=== PATIENT | female | born 1945 | race Caucasian/White ===

== ENCOUNTER 2020-10-09 08:37 | Observation (INO) ==
--- NOTE | 2020-10-02 11:44 | History & Physical Report ---
Date of Service October 02, 2020 Assessment & Plan (1) Lumbar post-laminectomy syndrome: (2) Presence of intrathecal pump: Intrathecal pump has not been providing adequate pain relief despite multiple dosage increases. No fluid could be aspirated from the catheter access port. Catheter is occluded which may be why the patient is not receiving adequate pain relief. She will be scheduled for a catheter evaluation and potential revision. As there are two intrathecal pump anchor sites no longer attached and the pump is in the pocket at a 90 degree angle, we will also plan to revise/replace the intrathecal pump. Risks and benefits were reviewed with the patient. Procedure was explained and she would like to proceed. History of Present Illness Primary Care Provider: Steffen Ramirez Mrs. Gonzales is a 75 year old female with chronic intractable axial low back pain secondary to lumbar post-laminectomy syndrome requiring the implantation of an intrathecal pump and catheter delivery system. She has had poor pain control despite continued dosage increases. Her pain is worsened with standing and walking. Symptoms improve with sitting and laying supine. Pain is ranging from 4-10/10. She is reporting moderate limitations into performing her daily activities. Intrathecal pump contains hydromorphone, bupivacaine, and clonidine. Allergies Allergy/AdvReac Type Severity Reaction Status Date / Time cephalexin Allergy Unknown Unknown Verified 10/02/20 11:37 bee sting Allergy Intermediate MOUTH Uncoded 10/02/20 11:37 SWELLS Home Medications Home Medications Medication Instructions Recorded Confirmed Type amlodipine 10 mg tablet 10 mg PO QAM 05/23/20 10/02/20 History aspirin 81 mg tablet,delayed 81 mg PO QAM 05/23/20 10/02/20 History release atorvastatin 20 mg tablet 20 mg PO QAM 05/23/20 10/02/20 History clonazepam 0.5 mg tablet 0.5 mg PO TID 05/23/20 10/02/20 History furosemide 40 mg tablet 40 mg PO BID 05/23/20 10/02/20 History hydromorphone intrathecal pump 0 dose CONTINUOUS INTRATHECAL 05/23/20 10/02/20 History INFUSION DAILY iron,carbonyl 65 mg-vitamin C 125 1 tab PO BID 05/23/20 10/02/20 History mg tablet,delayed release metoprolol tartrate 25 mg tablet 12.5 mg PO BID tab 05/23/20 10/02/20 History potassium chloride 20 mEq 20 meq PO BID 05/23/20 10/02/20 History tablet,extended release(part/cryst) pregabalin 75 mg capsule 75 mg PO BID 05/23/20 10/02/20 History Lactobacillus acidophilus 1,000 mmu cells PO BID 08/17/20 10/02/20 History [Probiotic Acidophilus] apixaban [Eliquis] 5 mg PO BID 10/02/20 10/02/20 History Past Med/Surg History Medical History Afib TAKING ELIQUIS Anxiety Back pain Failure of spinal cord stimulator 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 PLACED FOR SSS. 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 Speech and cognition is intact. Mood and affect is appropriate. In no acute distress. HEAD: Normocephalic; atraumatic. EYES: No conjunctival injection. EOM intact. NECK: Full ROM; trachea is midline; no TTP; no cervical lymphadenopathy. CARDIO: Regular rate and rhythm. No murmurs, rubs, or gallops. PULM: Clear to auscultation. No wheezes, rales, or rhonchi. CHEST: Regular chest respiration and excursion. ABDOMEN: Intrathecal pump is located in the left lower abdomen and is at 90 degrees in the pocket. 2 anchor sites are no longer attached. EXTREMITIES: 4/5 strength of the lower extremities. 1+ lower extremity edema. Diminished distal sensation. BACK: Well healed surgical incisions from the mid thoracic to distal lumbar region. No focal midline, facet joint, or SI joint tenderness. No myofascial spasm or trigger points noted. NEURO: CN II-XII grossly intact with no focal deficits noted. Ambulates slowly with a single point cane. SKIN: No lesions, erythema, or rashes noted.
--- NOTE | 2020-10-02 13:31 | Anesthesiology Consultation ---
Date of Service October 02, 2020 Assessment & Plan (1) Encounter for pre-operative examination: Chart Review Chart Review: Acceptable Risk for Surgery (pending preop Covid testing ) and Patient NOT seen in Pre Admission Testing Pt initially scheduled for procedure 08/29/20- rescheduled secondary to UTI. Per nursing assessment 10/02/2020, patient resides in [facility]. No known Covid positive contacts or Covid related symptoms. Preop Covid testing scheduled 10/03/20. History Surgery Operation Date: 10/09/20 10:10 Proposed Procedures p Revision/Replacement of Intrathecal Morphine Pain Pump and Possible Revision/Replament of Intrathecal Catheter - Erin Rosario, Height/Weight Height: 5 ft 4 in Weight: 70.307 kg Allergies Allergy/AdvReac Type Severity Reaction Status Date / Time cephalexin Allergy Unknown Unknown Verified 10/02/20 11:37 bee sting Allergy Intermediate MOUTH Uncoded 10/02/20 11:37 SWELLS Medications Home Medications Medication Instructions Recorded Confirmed Last Taken amlodipine 10 mg tablet 10 mg PO QAM 05/23/20 10/02/20 Unknown aspirin 81 mg tablet,delayed 81 mg PO QAM 05/23/20 10/02/20 Unknown release atorvastatin 20 mg tablet 20 mg PO QAM 05/23/20 10/02/20 Unknown clonazepam 0.5 mg tablet 0.5 mg PO TID 05/23/20 10/02/20 Unknown furosemide 40 mg tablet 40 mg PO BID 05/23/20 10/02/20 Unknown hydromorphone intrathecal pump 0 dose CONTINUOUS INTRATHECAL 05/23/20 10/02/20 Unknown INFUSION DAILY iron,carbonyl 65 mg-vitamin C 125 1 tab PO BID 05/23/20 10/02/20 Unknown mg tablet,delayed release metoprolol tartrate 25 mg tablet 12.5 mg PO BID tab 05/23/20 10/02/20 Unknown potassium chloride 20 mEq 20 meq PO BID 05/23/20 10/02/20 Unknown tablet,extended release(part/cryst) pregabalin 75 mg capsule 75 mg PO BID 05/23/20 10/02/20 Unknown Lactobacillus acidophilus 1,000 mmu cells PO BID 08/17/20 10/02/20 Unknown [Probiotic Acidophilus] apixaban [Eliquis] 5 mg PO BID 10/02/20 10/02/20 Unknown Past Medical History Medical History Afib TAKING ELIQUIS Anxiety Failure of spinal cord stimulator 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 PLACED FOR SSS. Presence of intrathecal pump Past Family History Family History Mother Heart disease Father No problems noted. 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 Nonspecific T wave abnormality. Other Testing Pacemaker Interrogation 07/19/20 Model: [employer] Implantation date: 12/25/16 Indication: SSS Battery/Longevity: 2.99 V/9.5yrs Mode: DDDR Pacin% AP, 3.2% SEAMER Ventricular triggered episodes: None Atrial triggered episodes: 18 A. fib, longest duration 2 days, 17 hours 3 minutes peak ventricular rate 152 bpm. Anticoagulation: ASA Comments appropriate device function. Plan: Return to clinic in 6 months.
[~2020-10-09 08:37] MED LIST: BUPIVACAINE 0.25% 30 ML VIAL ONE; LR 15ML/HR IV SCH
--- NOTE | 2020-10-09 09:31 | History & Physical Bridge Note ---
Date of Service October 09, 2020 History & Physical Bridge Note I have examined the patient, reviewed the History & Physical and in the interval since the performance of the History & Physical I have noted the following changes of clinical significance: no changes noted Potential risks including infection potentially leading to need for explantation of intrathecal pump, headache, bleeding, nerve injury, reaction to any one of the medications used for the procedure, persistent pain at the injection site and persistent symptoms discussed with the patient. Nature of the procedure also discussed with the patient. Alternatives to the specific procedure was also discussed with the patient. Patient's questions were answered. Patient gives informed consent to proceed.
[2020-10-09] MEDS ORDERED: ATROPINE SULFATE 0.1 MG/ML 10ML SYR IV PRN (09:58)
[2020-10-09] MEDS ORDERED: ONDANSETRON INJ 2 MG/ML 2 ML VIAL IV PRN ×2 (09:58→13:26)
[2020-10-09] MEDS ORDERED: ePHEDrine sulfate 50 MG/ML AMP IV PRN (09:58)
[2020-10-09] MEDS ORDERED: HYDROmorphone INJ 2 MG/ML SYR/VIAL IV PRN (09:58)
[2020-10-09] MEDS ORDERED: fentaNYL citrate 100 MCG/2 ML VIAL ONE (10:06)
[2020-10-09] MEDS ORDERED: PROPOFOL IV EMULSION 10 MG/ML 20 ML VIAL IV ONE (10:06)
[2020-10-09] MEDS ORDERED: MIDAZOLAM HCL 1 MG/ML 2ML VIAL ONE (10:06)
[2020-10-09] MEDS ORDERED: LIDOCAINE HCL 2% 2 ML VIAL/AMP(20MG/ML) INFIL ONE (10:06)
[2020-10-09] MEDS ORDERED: IOPAMIDOL INJ 61% 15 ML VIAL ONE (10:26)
[2020-10-09] MEDS ORDERED: LIDOCAINE/EPINE 2% 1:100,000 20ML ONE (10:27)
[2020-10-09] MEDS: CLINDAMYCIN 900 MG in DEXTROSE 5% 50 ML IV SCH (10:37)
[2020-10-09] MEDS ORDERED: BACITRACIN INJ 50,000 UNIT VIAL ONE (11:30)
[2020-10-09] MEDS ORDERED: ONDANSETRON INJ 2 MG/ML 2 ML VIAL ONE (12:29)
--- NOTE | 2020-10-09 13:22 | Operative Report ---
Post Operative Report Pre & Post Diagnosis Operation Date: 10/09/20 09:20 Pre-Op Diagnosis: Malfunctioning Intrathecal Catheter and Malposition Post-Op Diagnosis: Malfunctioning Intrathecal Catheter and Malposition I identified the patient and participated in the time-out.: Yes Procedure Operation Date: 10/09/20 09:20 Actual Procedures p Replacement of Intrathecal Hydromorphone Pain Pump, catheter acess study and analysis and reprogramming, irrigation and debridement hematoma pump site - Erin Rosario DO Surgeon Erin Rosario, Rn Cardiac none Estimated Blood Loss 20 Findings Consistent with Post-Op Diagnosis Fluids Per anesthetic record Specimens Gram stain and tissue sent from deep pocket to pathology Drains None Anesthesia Type General Regional Complications none Disposition Accompanied Patient To Recovery: No Disposition: Recovery Room Indications Intrathecal pump malfunction/malposition Description of Procedure PROCEDURE PERFORMED: Intrathecal pump replacement, catheter access port study, pump interrogation, reprogramming, and analysis. Incision and drainage hematoma from pump pocket site PREOPERATIVE DIAGNOSIS: Malfunctioning/malpositioned intrathecal pump POSTOPERATIVE DIAGNOSIS: Same. COMPLICATIONS: None. SURGEON: Dr. Erin Rosario. ANESTHESIA: General. MATERIAL FORWARDED TO THE LAB: Gram stain and culture with tissue sent to pathology x2 INDICATIONS: The patient had a malfunctioning/malpositioned intrathecal pump thus requiring revision/replacement. The patient was explained the risks, benefits, alternatives of the procedure and agreed to proceed as above. Informed consent was obtained and witnessed. A time out was performed after the patient was brought into the Operating Room. Antibiotics were given. The patient was then induced with general anesthesia without complications and was placed in the right lateral position. The skin was prepped with duraprep and betadine and draped in sterile fashion. The existing pump was identified and using a scalpel, electrocautery, and blunt dissection, the existing pump was exposed. A [place] sock was noted. Upon entering the pocket, dark old venous blood was noted approximately 350 to 400 mL was aspirated from the pump pocket site. Resorption of hematoma tissue was noted within the pocket. Cultures were taken and tissue sent to pathology for analysis. Gram stain proved negative for organisms. No retaining sutures were noted and the old pump was explanted. An abrupt 90 degree angle of the existing catheter was noted and on reveled. Afterwards, free-flowing CSF was noted from the catheter access port with aspiration. Greater than 2 mL was able to be aspirated with ease. The pocket was irrigated with 3 mL of bacitracin infused saline with a pulse returned goods receiving clerk then with 3 bulb syringes of Aquacel iodophor saline. The new 40ml pump was opened and prepared according to medtronic standards. Fresh pump medication was placed into the new pump. The catheter was disconnected from the old pump and placed on the 40 mL new intrathecal pump according to Medtr[employer] standards. Aspiration of the catheter access port revealed free flowing CSF. The pocket was extended using electrocautery to be able to accommodate a larger 40 mL pump. Next, the pocket was irrigated with 3 bulb syringes full of sterile normal saline with aqueous iodophor. Hemostasis was achieved. The new pump was placed into the pocket in the 12 O'clock position. The intrathecal pump was anchored in the pocket with 4 0 Prolene sutures. No complications were noted after the intrathecal pump was placed inside the pocket. The skin and subcutaneous tissues was closed with 0-antibiotic coated strata fix then 3-O antibiotic coated stratafix then Prineo dermabond dressing without complications. The skin was cleansed and dried and 4 x 4's with Tegaderm was placed for dressing. No complications were noted throughout the procedure. The patient tolerated the procedure and general anesthesia well and was extubated at the end of the procedure. The patient was then transferred back to the [facility] and was taken to the recovery room in stable condition. The patient will stay overnight for observation as new intrathecal dosing was initiated given change in catheter. Pump size inserted: 40ml SynchroMed 2 model [id number] Medication placed in pump: Hydromorphone 5 mg/mL, clonidine 75 mcg/mL, and bupivacaine 1 mg/mL Dose of primary medication: Hydromorphone 0.4005 mg/day. I attest to the content of the Intraoperative Record and any orders documented therein. Any exceptions are noted below.
[2020-10-09] MEDS ORDERED: ZOLPIDEM TARTRATE 5 MG TAB PO PRN (13:26)
[2020-10-09] MEDS ORDERED: diphenhydrAMINE Capsule 25 MG CAP PO PRN (13:26)
[2020-10-09] MEDS ORDERED: MAGNESIUM CITRATE 296 ML/BTL PO PRN (13:26)
[2020-10-09] MEDS ORDERED: HYDROCODONE/ACETAMOPHEN 5/325MG TAB PO PRN (13:26)
[2020-10-09] MEDS ORDERED: ACETAMINOPHEN 500 MG TAB PO PRN (13:26)
[2020-10-09] MEDS ORDERED: NALOXONE HCL 0.4 MG/1 ML VIAL/CARP IV PRN (13:26)
[2020-10-09] MEDS ORDERED: NO NARCOTICS OR SEDATIVES SCH (13:30)
[2020-10-09] MEDS: fentaNYL citrate 100 MCG/2 ML VIAL IV PRN ×4 (13:41→13:56)
--- NOTE | 2020-10-09 13:42 | Anesthesiology Progress Note ---
Date of Service October 09, 2020 Anesthesia Post Procedure Vital Signs Vital Signs: Temp Pulse Resp BP Pulse Ox 10/09/20 09:27 36.6 C 78 18 142/67 H 98 Pain Intensity Bilateral Leg: Pain Intensity: 7 Transfer of Care Handoff Completed per policy Notes Mental Status: alert / awake / arousable and participated in evaluation Patient Amnestic to Procedure: Yes Nausea / Vomiting: adequately controlled Pain: adequately controlled Airway Patency, RR, SpO2: stable & adequate BP & HR: stable & adequate Hydration State: stable & adequate Anesthetic Complications: no major complications apparent and Pt Satisfied with anesthetic care
[2020-10-09] MEDS: clonazePAM 0.5 MG TAB PO SCH ×2 (15:08→22:05)
[2020-10-09] MEDS ORDERED: HYDROMORPHONE FOR PAIN PUMP ITR PRN (15:30)
[2020-10-09] MEDS: FUROSEMIDE 40 MG TAB PO SCH (15:34)
[2020-10-09] MEDS: HYDROmorphone INJ 0.5 MG/0.5 ML SYR IV PRN ×3 (15:36→22:03)
--- NOTE | 2020-10-09 17:00 | Hospitalist Progress Note ---
Date of Service October 09, 2020 Assessment & Plan (1) Back pain: post procedure - per pain management. does have pain but notes is tolerable (2) Hypertension: BP acceptable to the situation - follow (3) Afib: rate controlled, anticoagulation on hold - will want to resume as soon as is safe but OK to hold for now (4) Neuromuscular dysfunction of bladder: luna in place, does have some pressure but no other clear s/s infection - follow (5) DVT prophylaxis: per pain management (SCDs) (6) Discharge planning issues: stable for now - follow - although anticipate home once ready for discharge Admission and Anticipated Discharge Date Admission Date: October 09, 2020 Subjective feeling reasonable after procedure - some low back pain in the area she nroamlly has it - seems vaguely different than normal and goes down the leg some. also bladder pressure but no f/c/s or other significant pain stopped eliquis a week prior to procedure procedure note noted not normally on o2 no other complaints Review of Systems Review of Systems: All systems reviewed & are unremarkable except as noted in HPI & below Physical Exam Physical Exam: gen [id number] pleasant nad heent nc at mmm cardio reg rate to ausculatation rate definitely controlled somewhat quiet but no r/m/g lungs cta b/l no r/r/w no accessory muscles good effort skin no rashes no pallor or icterus luna draining clear yellow urine Results & Data Results & Data ([facility]) Vital Signs (Past 12 Hours) Vital Signs Temp Pulse Pulse Resp BP Pulse Ox 10/09/20 15:43 61 16 165/85 H 100 10/09/20 15:07 99.0 F 61 16 148/70 H 100 10/09/20 14:51 99.0 F 60 15 152/74 H 100 10/09/20 14:25 60 14 127/67 99 10/09/20 14:10 98.1 F 60 16 141/67 H 100 10/09/20 14:00 60 21 134/69 100 10/09/20 13:50 60 14 139/69 98 10/09/20 13:40 60 17 143/71 H 100 10/09/20 13:30 60 13 122/65 100 10/09/20 13:20 60 19 128/64 100 10/09/20 13:10 97.2 F L 60 14 147/76 H 100 10/09/20 09:27 97.9 F 78 18 142/67 H 98 PG Care Time/CCT Total # of Minutes Spent Total Time Spent with Patient: Total time spent is greater than 50% in coordination of care (as documented) at patient's floor/unit and/or counseling patient: Coding Level of Care Code 70622 Subseq Hosp Care Lvl 2 Diagnoses Back pain M54.9 Hypertension I10 Afib I48.91 Neuromuscular dysfunction of bladder N31.9 DVT prophylaxis Z29.9 Discharge planning issues Z02.9
[2020-10-09] MEDS ORDERED: LACTOBACILLUS ACIDOPHILUS 1.5 MG PO SCH (21:00)
[2020-10-09] MEDS ORDERED: NON-FORMULARY MEDICATION (Iron,Carbonyl-Vitamin C [Vitron-C] 65 mg iron- 125 mg tablet,del PO SCH (21:00)
[2020-10-09] MEDS: DOCUSATE SODIUM 100 MG CAP PO SCH (22:02)
[2020-10-09] MEDS: METOPROLOL TARTRATE 25 MG TAB PO SCH (22:02)
[2020-10-09] MEDS: POTASSIUM CHLORIDE CRTAB 20 MEQ TABCR PO SCH (22:03)
[2020-10-09] MEDS: PREGABALIN 75 MG CAP PO SCH (22:05)
[2020-10-10] MEDS: HYDROmorphone INJ 0.5 MG/0.5 ML SYR IV PRN (06:23)
[2020-10-10] MEDS: FUROSEMIDE 40 MG TAB PO SCH (08:13)
[2020-10-10] MEDS: DOCUSATE SODIUM 100 MG CAP PO SCH (08:13)
[2020-10-10] MEDS: clonazePAM 0.5 MG TAB PO SCH (08:13)
[2020-10-10] MEDS: PREGABALIN 75 MG CAP PO SCH (08:13)
[2020-10-10] MEDS: METOPROLOL TARTRATE 25 MG TAB PO SCH (08:13)
[2020-10-10] MEDS: POTASSIUM CHLORIDE CRTAB 20 MEQ TABCR PO SCH (08:16)
--- NOTE | 2020-10-10 08:51 | Pain Management Progress Note ---
Date of Service October 10, 2020 Assessment & Plan (1) Lumbar post-laminectomy syndrome: (2) Presence of intrathecal pump: * A 10% dosage increase was made today. She is now receiving Hydromorphone 0.4409 mg/day, bupivacaine 0.0882 mg/day,clonidine 6.613 mcg/day. * 1 week wound check is scheduled for 10/16 11AM and 2 week wound check is scheduled for 10/23 at 2:30PM. * Continue to wear abdominal binder 24/ x 4 weeks, then only during physical activity x 4 weeks. * Plan for discharge today. She will be prescribed Hydrocodone 5/325mg PRN breakthrough pain. Admission and Anticipated Discharge Date Admission Date: October 09, 2020 Anticipated date of discharge: 10/10/20 Subjective Mrs. Gonzales is a 75 year old female s/p intrathecal pump replacement and catheter revision. Patient is reporting some low back pain and does request a dosage increase today. The low back pain is manageable to the point where she does feel comfortable for discharge today. There is little incisional pain. Pain is 5/10 currently. She has been able to pass gas - no bowel movement yet day. No complaints. Physical Exam Physical Exam: GENERAL: This is a 75 year old female. Does not appear in acute distress. HEAD/FACE: Normocephalic and atraumatic. EYES: No drainage or conjunctival injection. ENT: Nose without bleeding or discharge. Oral mucosa moist. NECK: Full ROM without apparent pain. No swelling or masses noted. RESPIRATORY: Patient with unlabored breathing. No signs of respiratory distress. CHEST/AXILLA: Chest movement symmetrical. No deformities noted. ABDOMEN/GI: Pump is located in the LLQ. No mobility of the pump noted. BACK: Mild lumbosacral tenderness. SKIN: LLQ incision has Prineo bandage in place. No bleeding, erythema, warmth noted. Aquacel dressing was placed over the incision. MS/EXTREMITY: No swelling, no deformities. Moving extremities appropriately. NEURO: Alert and appears oriented. Speech is fluent. Cranial Nerves are grossly intact. PSYCH: Alert, pleasant, affect is calm
[2020-10-10] MEDS ORDERED: ATORVASTATIN 20 MG TAB PO SCH (09:00)
[2020-10-10] MEDS ORDERED: amLODIPine BESYLATE 5 MG TAB PO SCH (09:00)
--- NOTE | 2020-10-10 09:23 | Discharge Summary ---
Date of Service October 10, 2020 Admission HPI Per Admitting Provider Mrs. Gonzales is a 75 year old female with chronic intractable axial low back pain secondary to lumbar post-laminectomy syndrome requiring the implantation of an intrathecal pump and catheter delivery system. She has had poor pain control despite continued dosage increases. Her pain is worsened with standing and walking. Symptoms improve with sitting and laying supine. Pain is ranging from 4-10/10. She is reporting moderate limitations into performing her daily activities. Intrathecal pump contains hydromorphone, bupivacaine, and clonidine. Admission Exam (Per Admitting) Constitutional GENERAL: 75 year old female is obese and physically deconditioned. Speech and cognition is intact. Mood and affect is appropriate. In no acute distress. HEAD: Normocephalic; atraumatic. EYES: No conjunctival injection. EOM intact. NECK: Full ROM; trachea is midline; no TTP; no cervical lymphadenopathy. CARDIO: Regular rate and rhythm. No murmurs, rubs, or gallops. PULM: Clear to auscultation. No wheezes, rales, or rhonchi. CHEST: Regular chest respiration and excursion. ABDOMEN: Intrathecal pump is located in the left lower abdomen and is at 90 degrees in the pocket. 2 anchor sites are no longer attached. EXTREMITIES: 4/5 strength of the lower extremities. 1+ lower extremity edema. Diminished distal sensation. BACK: Well healed surgical incisions from the mid thoracic to distal lumbar region. No focal midline, facet joint, or SI joint tenderness. No myofascial spasm or trigger points noted. NEURO: CN II-XII grossly intact with no focal deficits noted. Ambulates slowly with a single point cane. SKIN: No lesions, erythema, or rashes noted. Discharge Data Consultations 10/09/20 13:28 Consult Hospitalist Routine 10/09/20 13:29 Consult Case Management - Discharge Planning Routine Procedures Performed Operation Date: 10/09/20 09:20 Actual Procedures p Replacement of Intrathecal Morphine Pain Pump, catheter acaess study and tom sis and reprogramming, - Erin Rosario DO irrigation and debridement pump site - Erin Rosario, DO Hospital Course (1) Presence of intrathecal pump: Intrathecal pump was removed and large hematoma was evacuated. New intrathecal pump was implanted. Catheter was malfunctioning due to twisting. After repositioning of the intrathecal catheter Dr. Rosario was able to draw out CSF fluid. Catheter did not require replacement. As the patient was not receiving the intrathecal medication as expected, the dosage of hydromorphone was decreased from 3.136 mg/day down to 0.4005 mg/day. She is reporting adequate pain relief. She was given a 10% dosage increase today. She states that her low back pain is manageable to where she is comfortable for discharge. She will follow up with pain clinic as scheduled for 1 and 2 week wound check appointments. Discharge Instructions Resume taking Eliquis tomorrow morning. Wear abdominal binder 23/06 x 4 weeks; then during physical activity x 4 weeks. Return to the office for 1 week wound check on 10/16 at 11AM and 10/23 at 2:30PM. Do not change dressing. This will be changed at 1 week wound check.
== END 2020-10-10 11:29 | disposition home health service (06) ==
LOC: 2E 08:37 → ASU 08:37